=== PATIENT | male | born 1995 | race Caucasian/White ===

== ENCOUNTER 2017-08-13 03:15 | Emergency (ER) | payer OTHER ==
[~2017-08-13] VITALS: Ht 190.5 cm; Wt 98.7 kg
[2017-08-13 03:18] VITALS: TEMP 36.7; O2SAT 94; Ht 190.5 cm; Wt 98.7 kg
--- NOTE | 2017-08-13 03:25 | EMERGENCY ROOM VISIT NOTE ---
History Report prepared by Shante: Branden Champagne Under the Supervision of: Dr. Raymond Luo M.D. First contact with patient: 03:16 Stated Complaint: ALCOHOL OVERDOSE History of Present Illness The patient is a 22 year old male who presents to the Emergency Room via EMS for a persistent alcohol intoxication that started prior to arrival. Per EMS, the patient was found sleeping [place] the [employer] [place], and was then brought here. The patient admits to drinking "a little bit tonight". History limited secondary to patient's intoxication. Source of History: patient, EMS History Limited By: intoxication Onset: Prior to arrival Position: other (global - alcohol intoxication) Timing: other (persistent) Note: Associated symptoms: Found sleeping outside [employer] building. Review of Systems Review of systems is unobtainable due to alcohol intoxication. Past Medical & Surgical Medical Problems: (1) No chronic problems Family History No pertinent family history Social History Alcohol Use: occasionally Marital Status: single Housing Status: lives with family Occupation Status: student Current/Historical Medications No Active Prescriptions or Reported Meds Allergies Coded Allergies: No Known Allergies (Unverified , 08/13/17) Physical Exam Vital Signs Date Time Temp Pulse Resp B/P (MAP) Pulse Ox O2 Delivery O2 Flow Rate FiO2 08/13/17 10:29 113 16 145/88 99 08/13/17 09:55 58 0 98 08/13/17 09:50 57 2 98 08/13/17 09:45 54 4 98 08/13/17 09:40 54 11 97 08/13/17 09:35 57 10 98 08/13/17 09:31 117/70 08/13/17 09:30 59 3 98 08/13/17 09:25 74 17 97 08/13/17 09:20 94 11 95 08/13/17 09:15 75 16 95 08/13/17 09:10 90 14 93 08/13/17 09:05 83 14 95 08/13/17 09:01 109/68 08/13/17 09:00 67 15 94 08/13/17 08:55 99 17 94 08/13/17 08:50 68 16 94 08/13/17 08:45 68 15 94 08/13/17 08:40 66 15 94 08/13/17 08:35 67 16 94 08/13/17 08:31 123/49 9/17/17 08:30 68 16 93 9/17/17 08:25 65 16 93 9/17/17 08:20 62 16 93 9/17/17 08:15 65 14 94 9/17/17 08:13 67 9/17/17 08:10 67 17 94 9/17/17 08:05 86 19 91 9/17/17 08:01 118/68 9/17/17 08:00 68 16 93 9/17/17 07:55 63 16 93 9/17/17 07:50 63 18 93 9/17/17 07:45 62 18 93 9/17/17 07:40 63 18 93 9/17/17 07:35 64 18 93 9/17/17 07:31 113/66 9/17/17 07:30 68 19 93 9/17/17 07:25 56 17 93 9/17/17 07:20 62 17 93 9/17/17 07:15 78 19 96 9/17/17 07:10 67 18 96 9/17/17 07:05 69 20 96 9/17/17 07:01 112/49 9/17/17 07:00 71 19 96 9/17/17 07:00 68 20 112/49 96 Room Air 9/17/17 06:55 71 19 97 9/17/17 06:50 71 19 98 9/17/17 06:45 74 19 98 9/17/17 06:40 75 18 98 9/17/17 06:35 75 17 98 9/17/17 06:31 91/41 9/17/17 06:30 77 18 97 9/17/17 06:25 79 18 96 9/17/17 06:20 112 18 92 9/17/17 06:15 80 17 74 9/17/17 06:10 76 17 87 9/17/17 06:05 79 20 88 9/17/17 06:01 125/63 9/17/17 06:00 76 18 125/63 92 Room Air 9/17/17 06:00 78 18 93 9/17/17 05:55 74 20 93 9/17/17 05:50 105 12 91 9/17/17 05:45 77 19 94 9/17/17 05:40 81 18 94 9/17/17 05:35 95 13 94 9/17/17 05:31 140/91 9/17/17 05:30 88 19 95 08/13/17 05:25 75 20 94 08/13/17 05:20 76 21 94 08/13/17 05:15 76 20 94 08/13/17 05:10 79 20 94 08/13/17 05:05 81 20 94 08/13/17 05:01 115/52 08/13/17 05:00 81 20 93 08/13/17 05:00 77 20 115/52 92 Room Air 08/13/17 04:55 80 20 93 08/13/17 04:50 80 20 94 08/13/17 04:45 81 21 93 08/13/17 04:40 82 19 93 08/13/17 04:35 81 21 94 08/13/17 04:31 114/61 08/13/17 04:30 83 21 92 08/13/17 04:25 87 21 93 08/13/17 04:20 83 20 93 08/13/17 04:15 93 19 93 08/13/17 04:10 105 18 95 08/13/17 04:05 107 26 95 08/13/17 04:01 135/71 08/13/17 04:00 97 16 135/71 94 Room Air 08/13/17 03:41 111 08/13/17 03:18 94 Room Air 08/13/17 03:18 36.7 129 20 144/102 95 Room Air Physical Exam GENERAL: Patient is moderately intoxicated. Smells of alcohol. Well appearing and in no acute distress. HEAD: No evidence of Trauma. AT/NC EYES: Injected conjunctiva. Normal EOM. Pupils equal/reactive. ENT: Mucous membranes moist, no nasal congestion, . NECK: No step-offs, no adenopathy, no meningismus, trachea is midline. LUNGS: No dyspnea. Clear to auscultation and equal bilaterally. No wheeze, no rhonchi. HEART: Regular rate and rhythm. No murmurs, rubs, gallops appreciated. ABDOMEN: Soft, nontender, bowel sounds positive, no masses appreciated, no peritonitis. BACK: No midline tenderness, no CVA tenderness EXTREMITIES: Normal motion all extremities, no cyanosis, no edema. NEUROLOGIC: Intoxicated. Awake. Alert, oriented. No acute motor or sensory deficits, no focal weakness, cranial nerves grossly intact. SKIN: No rash, no jaundice, no diaphoresis. Medical Decision & Procedures Laboratory Results 08/13/17 04:03 Test 08/13/17 04:03 Anion Gap 6.0 mmol/L (3-11) Est Creatinine Clear Calc Drug Dose 123.8 ml/min Estimated GFR () 108.3 Estimated GFR (Non- 93.5 BUN/Creatinine Ratio 10.3 (10-20) Calcium Level 8.2 mg/dl (8.5-10.1) Ethyl Alcohol mg/dL 347.0 mg/dl (0-3) Laboratory results as reviewed by me. ED Course 0317: The patient was evaluated in room B12B. A limited history and physical exam was performed. 0633: I reevaluated the patient and he is still heavily intoxicated. []: discharge when awake, alert, oriented. Medical Decision Differential: Alcohol Intoxication, Drug Intoxication, Electrolyte Abnormality, Trauma, Intracranial Event, Toxicological, Excited Delirium, Serotonin Syndrome , amongst other pathologies entertained. 22 yr old intoxicated male brought in by EMS after being found sleeping outside of the [employer] building on campus. Patient with no evidence nor history for trauma. Protecting airway and breathing comfortably throughout ED stay. EtOH positive. Monitored and discharged when awake, alert, oriented and denies any complaints. Medication Reconcilliation Current Medication List: was personally reviewed by me None on list. Blood Pressure Screening Patient's blood pressure: Elevated blood pressure Blood pressure disposition: Elevated BP felt to be situational Impression Primary Impression: Alcohol abuse Additional Impression: Alcohol use with intoxication Scribe Attestation The scribe's documentation has been prepared under my direction and personally reviewed by me in its entirety. I confirm that the note above accurately reflects all work, treatment, procedures, and medical decision making performed by me. Departure Information Dispostion Home / Self-Care Prescriptions No Active Prescriptions or Reported Meds Patient Instructions Alcohol Intoxication - [facility], [facility] Health Problem Qualifiers
[2017-08-13 04:34] LABS: BUN/CREATININE RATIO 10.3 (10-20); CALCIUM 8.2 mg/dl (8.5-10.1); CREATININE 1.1 mg/dl (0.60-1.40); POTASSIUM 3.8 mmol/L (3.5-5.1)
[2017-08-13 10:29] VITALS: BP 145/88; PULSE 113; O2SAT 99
== END 2017-08-13 10:36 | disposition home or self-care (01) ==
LOC: EDBD 03:15 → C.EDB 03:16
DX: F10.129 Alcohol abuse with intoxication, unspecified (principal)